=== PATIENT | male | born 1960 | race Caucasian/White ===

== ENCOUNTER 2016-11-20 12:28 | Inpatient (IN) | payer MEDICAID ==
[2016-11-20] MEDS ORDERED: Lactated Ringer's 1,000 ML IV ONE (16:05)
[2016-11-20] MEDS ORDERED: Succinylcholine Chloride 20 mg/ml Syr (5 ml) IV ONE (16:51)
[2016-11-20] MEDS ORDERED: Rocuronium 10 mg/ml (5 ml) ONE (16:51)
[2016-11-20] MEDS ORDERED: Propofol 10 mg/ml Inj (20 ML) ONE (16:51)
[2016-11-20] MEDS ORDERED: Midazolam 2 MG/2 ML VIAL ONE (16:51)
[2016-11-20] MEDS ORDERED: ceFAZolin IV 1 gm in Dextrose 1 GM/50 ML BAG IVPB ONE (17:04)
[2016-11-20] MEDS ORDERED: Bupivacaine HCl 0.25% PF (10 ml) Inj ONE (17:04)
[2016-11-20 17:33] VITALS: BMI 25.0
[2016-11-20] MEDS ORDERED: HYDROmorphone 0.5 mg/0.5 ml ISec IVP PRN (17:38)
[2016-11-21 07:34] LABS: BASO % 0.1 % (0.0-2.0); HEMATOCRIT 42.5 % (35.0-51.0); LYMPH # 1.1 K/uL (1.0-4.3); LYMPH % 15.8 % (20.0-40.0); MEAN CELL VOLUME 84.3 fL (80.0-94.0); MEAN CORPUSCULAR HEMOGLOBIN 29.1 pg (27.0-31.0); MEAN CORPUSCULAR HGB CONC 34.5 g/dL (33.0-37.0); MEAN PLATELET VOLUME 9.2 fL (7.2-11.7); MONO # 0.3 K/uL (0.0-0.8); MONO % 3.9 % (0.0-10.0); NRBC % 0.1 % (0.0-2.0); RED CELL DISTRIBUTION WIDTH 14.5 % (11.5-14.5); WHITE BLOOD COUNT 7.2 K/uL (4.8-10.8)
[2016-11-21 08:07] LABS: CHLORIDE 98 mmol/L (98-107); SODIUM 137 mmol/L (132-148)
[2016-11-21 08:08] LABS: POTASSIUM 4.1 mmol/L (3.6-5.2)
[2016-11-21 08:10] LABS: CARBON DIOXIDE 24 mmol/L (22-30); GFR AFRICAN-AMERICAN > 60
[2016-11-21 08:11] LABS: BLOOD UREA NITROGEN 17 mg/dL (9-20); CALCIUM 8.6 mg/dl (8.6-10.4); GLUCOSE,RANDOM 182 mg/dL (75-110)
[2016-11-21] MEDS ORDERED: Pneumococcal 23-Valent Vaccine IM ONE (10:00)
--- NOTE | 2016-11-21 14:11 | CP.PCM.PN ---
Subjective - Date & Time of Evaluation Date of Evaluation: 11/21/16 Time of Evaluation: 10:00 - Subjective Subjective: Dr. Jose note: Patient is seen and examined in room. He is here because he has a mass on the right side of his neck which was biopsied today. He currently has no complaints , denies fever, chills, nausea, vomiting, diarrhea, or shortness of breath. Objective - Vital Signs/Intake and Output Vital Signs (last 24 hours): Temp Pulse Resp BP Pulse Ox 97.2 F L 81 20 135/80 94 L 11/21/16 08:20 11/21/16 08:20 11/21/16 08:20 11/21/16 08:20 11/21/16 08:20 - Medications Medications: Current Medications Acetaminophen/Hydrocodone Bitart (Vicodin 5 Mg-300 Mg) 2 tab PO Q4H PRN PRN Reason: pain Stop: 11/27/16 17:34 Docusate Sodium (Colace) 100 mg PO BID [facility] Last Admin: 11/21/16 09:42 Dose: 100 mg Metformin HCl (Glucophage) 500 mg PO DAILY [facility] Last Admin: 11/21/16 09:42 Dose: 500 mg Ondansetron HCl (Zofran Inj) 4 mg IVP Q6 PRN PRN Reason: Nausea/Vomiting Pantoprazole Sodium (Protonix Inj) 40 mg IVP DAILY [facility] Last Admin: 11/21/16 09:42 Dose: 40 mg Pneumococcal Polyvalent Vaccine (Pneumovax 23 Vaccine) 0.5 ml IM .ONCE ONE Stop: 11/23/16 10:01 - Labs Labs: 11/21/16 07:25 11/21/16 07:25 - Constitutional Appears: Non-toxic, No Acute Distress - Head Exam Head Exam: NORMAL INSPECTION - Eye Exam Eye Exam: Normal appearance - ENT Exam Additional comments: dressing over the right side of his neck, clean with no discharge or fluid drainage. - Neck Exam Neck Exam: absent: Normal Inspection - Respiratory Exam Respiratory Exam: Clear to Ausculation Bilateral. absent: Rhonchi, Wheezes - Cardiovascular Exam Cardiovascular Exam: REGULAR RHYTHM, RRR, +S1, +S2. absent: Gallop, Rubs - GI/Abdominal Exam GI & Abdominal Exam: Soft, Normal Bowel Sounds. absent: Tenderness - Extremities Exam Extremities Exam: Normal Inspection. absent: Pedal Edema - Back Exam Back Exam: NORMAL INSPECTION - Psychiatric Exam Psychiatric exam: Normal Affect, Normal Mood - Skin Skin Exam: Normal Color Assessment and Plan (1) Neck mass Assessment & Plan: Mass on the right neck, there is also a mass on his thryoid as well. Today he went for a biopsy of the mass on his neck. Will follow up the biopsy results. Vicodin for pain control Status: Acute (2) Diabetes mellitus Assessment & Plan: accu checks, sliding scale insulin, and metformin 500mg daily Status: Acute (3) Prophylactic measure Assessment & Plan: Protonix 40mg Colace, SCDs, and Lovenox Status: Acute
[2016-11-21] MEDS: (Novolin R) Insulin Human Regular 100 units/ml vial SC SCH (22:44)
[2016-11-22 07:24] LABS: BASO % 0.5 % (0.0-2.0); EOS # 0.1 K/uL (0.0-0.7); HEMATOCRIT 41.3 % (35.0-51.0); LYMPH % 40.6 % (20.0-40.0); MEAN CELL VOLUME 84.9 fL (80.0-94.0); MEAN CORPUSCULAR HEMOGLOBIN 28.4 pg (27.0-31.0); MEAN CORPUSCULAR HGB CONC 33.4 g/dL (33.0-37.0); MEAN PLATELET VOLUME 9.3 fL (7.2-11.7); MONO # 0.5 K/uL (0.0-0.8); MONO % 7.4 % (0.0-10.0); RED CELL DISTRIBUTION WIDTH 14.8 % (11.5-14.5); WHITE BLOOD COUNT 7.3 K/uL (4.8-10.8)
[2016-11-22 07:41] LABS: CHLORIDE 98 mmol/L (98-107)
[2016-11-22 07:42] LABS: POTASSIUM 3.7 mmol/L (3.6-5.2); SODIUM 138 mmol/L (132-148)
[2016-11-22 07:44] LABS: ALB/GLOB RATIO 1.1 (1.0-2.1); AST/SGOT 19 U/L (17-59); CARBON DIOXIDE 26 mmol/L (22-30); GFR AFRICAN-AMERICAN > 60; TOTAL PROTEIN 6.9 g/dL (6.3-8.3)
[2016-11-22 07:45] LABS: ALKALINE PHOSPHATASE 67 U/L (38-126); ALT/SGPT 29 U/L (21-72); BLOOD UREA NITROGEN 17 mg/dL (9-20); CALCIUM 8.3 mg/dl (8.6-10.4); GLUCOSE,RANDOM 133 mg/dL (75-110); PHOSPHOROUS 3.3 mg/dL (2.5-4.5)
[2016-11-22 07:46] LABS: MAGNESIUM 1.7 mg/dL (1.6-2.3)
[2016-11-22] MEDS: (Novolin R) Insulin Human Regular 100 units/ml vial SC SCH ×4 (07:47→21:56)
[2016-11-22] MEDS: Enoxaparin 30 mg Syringe SC SCH (09:47)
[2016-11-22] MEDS ORDERED: Lidocaine 4% (Laryng-O-Jet) Kit MM ONE (11:01)
[2016-11-22] MEDS ORDERED: ceFAZolin IV 2 gm in Dextrose 1 GM/50 ML BAG IVPB ONE (11:10)
[2016-11-22] MEDS ORDERED: Bupivacaine HCl 0.25% PF (10 ml) Inj ONE (11:10)
[2016-11-22] MEDS ORDERED: Lidocaine 1% Inj (20ml) ONE (11:10)
[2016-11-22] MEDS ORDERED: ceFAZolin IV 1 gm in Dextrose 0 GM/0 ML BAG IVPB ONE (11:10)
[2016-11-22] MEDS ORDERED: Midazolam 2 MG/2 ML VIAL ONE (11:15)
[2016-11-22] MEDS ORDERED: Propofol 10 mg/ml Inj (20 ML) ONE (11:16)
[2016-11-22] MEDS ORDERED: Lactated Ringer's 1,000 ML IV ONE ×2 (11:25→11:35)
[2016-11-22] MEDS ORDERED: Rocuronium 10 mg/ml (10 ml) ONE (11:44)
[2016-11-22] MEDS ORDERED: Morphine 4 MG/ML VIAL ONE (12:43)
[2016-11-22] MEDS ORDERED: Neostigmine Methylsulfate 3mg/3ml Syringe IV ONE (12:44)
[2016-11-22] MEDS: HYDROmorphone 0.5 mg/0.5 ml ISec IVP PRN ×2 (13:40→14:18)
[2016-11-22] MEDS ORDERED: Sodium Chloride 0.9% 1,000 ML IV ONE (14:30)
[2016-11-22] MEDS: Sodium Chloride 0.45% 1,000 ML IV SCH ×2 (14:46→16:00)
[2016-11-22] MEDS: Hydrocodone/Acetaminophen 5 mg /300 mg Tab PO PRN (21:32)
[2016-11-23] MEDS: Sodium Chloride 0.45% 1,000 ML IV SCH (05:53)
[2016-11-23] MEDS: (Novolin R) Insulin Human Regular 100 units/ml vial SC SCH ×4 (08:30→22:08)
--- NOTE | 2016-11-23 08:45 | OP ---
PROCEDURE DATE: 11/22/2016 PREOPERATIVE DIAGNOSIS: Right thyroid mass with tracheal displacement. 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 PROCEDURE PERFORMED: Right thyroid lobectomy with lymph node removal and removal of neck lipoma. SURGEON: Dr. Bowles. TYPE OF ANESTHESIA: General. ESTIMATED BLOOD LOSS: 70 mL. POSTOPERATIVE CONDITION: Stable. INDICATIONS FOR SURGERY: This is a 56-year-old male with a large right thyroid mass displacing his trachea and causing compression and respiratory symptoms. By CAT scan, he is found to have a 5.2 cm mass with the above findings. He is taken now for a right thyroid lobectomy with frozen section. GROSS FINDINGS: There was a large cystic structure consistent with thyroid mass that was compressing his trachea, and it expanded nearly to the substernal level. A lipoma was encountered in the initial dissection and was removed. A couple of lymph nodes were removed incidentally to the dissection. DESCRIPTION OF PROCEDURE: The patient was taken to the operating room and general anesthesia was administered with the neck extended. The neck area was then prepped and draped and a standard neck exploiting incision was made 2 fingerbreadths above the sternal notch. The strap muscles were divided and a bleeding was noted from the anterior jugular vein and this was repaired with Prolene. The right lobe of the thyroid gland along with its large cystic structure was carefully dissected free. The cystic structure burst at one point and most of the serous fluid was suctioned. The lower pole vessels and then the upper pole vessels were dissected free and ligated with silk, as was the middle thyroid vein. The thyroid was then reflected over and the right recurrent laryngeal nerve was encountered at its insertion into the cricothyroid membrane and it was traced back until it was complete seen within the field. The remainder of dissection took place with view of the recurrent thyroid node. The isthmus of the thyroid was divided using the Bovie and the specimen was sent for frozen section as noted above. The wound was irrigated with saline. A [place] drain was brought out through an inferior stab wound and left in the thyroid bed. The tissue was widely mobilized and adjacent tissue transfer closure was performed with multiple layers of subcuticular Monocryl and glue. The patient tolerated the procedure well. He was transferred to the recovery in stable condition. Alex Bowles MD
--- NOTE | 2016-11-23 09:17 | CON ---
DATE: HISTORY OF PRESENT ILLNESS: The patient admitted to the hospital for salivary gland swelling. The patient underwent surgery. The patient was found to have a neck mass. PHYSICAL EXAMINATION: GENERAL: The patient is currently awake, alert, and oriented. VITAL SIGNS: Temperature 98 and pulse 92. HEENT: Normal. LUNGS: Breath sounds are symmetrical. HEART: Regular. ABDOMEN: Soft. EXTREMITIES: No edema. ASSESSMENT: Salivary gland tumor and neck mass, etiology not clear at this point, Patient getting bedrest, . Saul Jose MD
[2016-11-23] MEDS ORDERED: Pneumococcal 23-Valent Vaccine IM ONE (10:00)
[2016-11-23] MEDS: Enoxaparin 30 mg Syringe SC SCH (10:30)
[2016-11-23] MEDS: Hydrocodone/Acetaminophen 5 mg /300 mg Tab PO PRN (10:37)
[2016-11-23 16:37] VITALS: RESP 20
[2016-11-24 07:17] LABS: BASO % 0.4 % (0.0-2.0); EOS % 0.6 % (0.0-4.0); HEMATOCRIT 38.7 % (35.0-51.0); LYMPH % 26.6 % (20.0-40.0); MEAN CELL VOLUME 84.2 fL (80.0-94.0); MEAN CORPUSCULAR HGB CONC 34.4 g/dL (33.0-37.0); MEAN PLATELET VOLUME 9.2 fL (7.2-11.7); MONO # 0.8 K/uL (0.0-0.8); MONO % 10.7 % (0.0-10.0); WHITE BLOOD COUNT 7.4 K/uL (4.8-10.8)
[2016-11-24 07:56] LABS: CHLORIDE 97 mmol/L (98-107); POTASSIUM 3.8 mmol/L (3.6-5.2); SODIUM 137 mmol/L (132-148)
[2016-11-24 07:58] LABS: AST/SGOT 16 U/L (17-59); BILIRUBIN,TOTAL 1.1 mg/dL (0.2-1.3); CARBON DIOXIDE 27 mmol/L (22-30); GFR AFRICAN-AMERICAN > 60
[2016-11-24 07:59] LABS: ALB/GLOB RATIO 1.1 (1.0-2.1); ALKALINE PHOSPHATASE 63 U/L (38-126); ALT/SGPT 29 U/L (21-72); BLOOD UREA NITROGEN 13 mg/dL (9-20); GLUCOSE,RANDOM 134 mg/dL (75-110); TOTAL PROTEIN 6.8 g/dL (6.3-8.3)
[2016-11-24 08:19] VITALS: BP 147/88; PULSE 85; TEMP 97.8; O2SAT 96
[2016-11-24] MEDS: (Novolin R) Insulin Human Regular 100 units/ml vial SC SCH (08:30)
[2016-11-24] MEDS: Enoxaparin 30 mg Syringe SC SCH (09:00)
--- NOTE | 2016-12-03 17:40 | OP ---
PROCEDURE DATE: 11/24/2016 PREOPERATIVE DIAGNOSIS: A 4-cm right neck tumor. POSTOPERATIVE DIAGNOSIS: A 4-cm right neck tumor. PROCEDURES PERFORMED: 1. Radical resection of neoplasm of the right neck, 4 cm (07859). 2. Repair of blood vessel, right neck (90680). 3. A 32 sq cm adjacent tissue transfer closure ([id number]). SURGEON: Alex Bowles MD ANESTHESIA: General endotracheal. ESTIMATED BLOOD LOSS: 30 mL. POSTOPERATIVE CONDITION: Stable. INDICATIONS FOR SURGERY: The patient is a 56-year-old male with a mass of his right neck which has been growing in size. He presented for treatment last year, but was lost to follow up after surgery being scheduled. He re-presented now with a large tumor and he will undergo a wide deep neck excision. DESCRIPTION OF PROCEDURE: The patient was taken to the operating room, general anesthesia was administered and the right neck was prepped and draped. Elliptical incision was made surrounding the mass near angle of mandible, was dissected free into the fascia layer, completely removed. Bleeding was controlled using the Bovie. A larger blood vessel was repaired, and the wound was irrigated with copious amounts of saline solution. Generous tissue flaps were raised using the Bovie and adjacent tissue transfer closure was performed with multiple layers of Monocryl, subcuticular Monocryl and glue. The patient tolerated the procedure well and returned to the recovery room in stable condition. Alex Bowles MD
== END 2016-11-24 10:41 | disposition home or self-care (01) | DRG 287 ==
LOC: C.SDS 12:28 → C.9S 17:33 → C.6T 19:25
PROVIDERS: ADMIT Internal Medicine Pulmonary Disease; ATTEND Internal Medicine Pulmonary Disease
PROC: 0JB50ZZ Excision of Left Neck Subcutaneous Tissue and Fascia, Open Approach (ICD-10-PCS; 2016-11-22)
PROC: 0GTH0ZZ Resection of Right Thyroid Gland Lobe, Open Approach (ICD-10-PCS; principal; 2016-11-22 11:25)
PROC: 0HB4XZZ Excision of Neck Skin, External Approach (ICD-10-PCS; 2016-11-24)
DX: E04.1 Nontoxic single thyroid nodule (principal); D17.0 Benign lipomatous neoplasm of skin and subcutaneous tissue of head, face and neck